=== PATIENT | female | born 1995 | race Caucasian/White ===

== ENCOUNTER 2021-04-11 11:19 | Emergency (ER) | payer OTHER, SELFPAY ==
[2021-04-11 11:37] VITALS: BP 110/86; PULSE 75; RESP 12; TEMP 36.9; O2SAT 100
--- NOTE | 2021-04-11 12:39 | ED.FEMALEGU ---
HPI - Female Genitourinary General Chief complaint: Urogenital-Female Stated complaint: lt flank pain/back pain/POS UTI Source: patient and RN notes reviewed Mode of arrival: ambulatory History of Present Illness HPI Narrative: This is a 26-year-old female that presented to urgent care with complaints of left lower back pain, painful urination that occurred approximately 2 nights ago. She did take Azo at home with no relief has a history of having urinary tract infection that became septic. The patient denies SOB, CP, palpitation, extremity numbness, lightheadedness, dizziness, constipation, diarrhea, chills, or fever. She also denies any hematuria. MD elicited complaint: dysuria and UTI Related Data Home Medications Medication Instructions Recorded Confirmed dextroamphetamine-amphetamine 04/11/21 norgestimate-ethinyl estradiol tablet 04/11/21 [Sprintec (28)] Allergies Allergy/AdvReac Type Severity Reaction Status Date / Time Penicillins Allergy Severe swelling Verified 04/11/21 11:39 and cant breath Sulfa (Sulfonamide Allergy Severe swelling Verified 04/11/21 11:39 Antibiotics) and can't breath Review of Systems Review of Systems: Narrative: A 14 organ system Review of Systems was performed and pertinent positives included in the HPI, otherwise remaining ROS is negative. All systems reviewed & are unremarkable except as noted in HPI and below PMFSH Family History Family History (Updated 04/11/21 @ 12:39 by MESFIN LugoP-C) Other Family history non-contributory Exam Narrative: Exam Narrative: GENERAL: This is a well-nourished, well-developed patient, in no apparent distress. HEAD: normocephalic, atraumatic. EYES: PERRL. Sclera clear/white. Vision is grossly intact. EARS: External ears normal, auditory canals clear and without drainage, TMs normal without perforation. Hearing grossly intact. NOSE: External nose normal with no obvious nasal discharge, nares without redness, no rhinorrhea. THROAT: Mucous membranes moist, posterior pharynx clear. NECK: Neck supple, non-tender without lymphadenopathy, masses or thyromegaly. CARDIOVASCULAR: Regular rate and rhythm without murmurs, gallops, or rubs. RESPIRATORY: Clear to auscultation. Breath sounds equal bilaterally. No wheezes, rales, or rhonchi. GASTROINTESTINAL: Abdomen soft, non-tender, nondistended. Bowel sounds are active. No hepato-splenomegaly, or palpable masses. No guarding,Costovertebral angle tenderness SKIN: warm, intact with no suspicious lesions or rash, good texture and turgor. NEURO: awake, alert, and oriented to person, place and time. There were no obvious focal neurologic abnormalities. Steady gait EXTREMITIES: Normal range of motion. No edema. No calf tenderness. Negative Homans sign bilaterally. BACK: Nontender without deformity or crepitance. No flank tenderness. Course Course Emergency Course: Patient being treated for urinary tract infection with Macrobid Vital Signs Vital signs: Vital Signs Temperature 98.4 F 04/11/21 11:37 Pulse Rate 75 04/11/21 11:37 Respiratory Rate 12 04/11/21 11:37 Blood Pressure 110/86 04/11/21 11:37 Pulse Oximetry 100 04/11/21 11:37 Temperature 98.4 F 04/11/21 11:37 Pulse Rate 75 04/11/21 11:37 Respiratory Rate 12 04/11/21 11:37 Blood Pressure 110/86 04/11/21 11:37 Pulse Oximetry 100 04/11/21 11:37 MDM - Female Genitourinary Differential Diagnosis Differential diagnosis: Likely urinary tract infection, bacterial vaginosis and vaginitis Lab Data Attestation: I reviewed the patient's lab results. Labs: Urine Glucose Trace Reference Range: Negative Urine Bilirubin Negative Reference Range: Negative Urine Ketone Negative Reference Range: Negativ
== END 2021-04-11 12:48 | disposition home or self-care (01) ==
PROVIDERS: Emergency Provider Nurse Practitioner
DX: N39.0 Urinary tract infection, site not specified (principal)
CPT/HCPCS: 81003; 87086; 99213; G0463